=== PATIENT | female | born 1985 | race American Indian/Alaskan Native ===

== ENCOUNTER 2018-08-17 14:55 | Emergency (ER) | payer MEDICAID, OTHER ==
--- NOTE | 2018-08-17 15:09 | Emergency Department Report ---
Blank Doc - Documentation Documentation: This is a 32-year-old female that presents with sore throat. This initial assessment/diagnostic orders/clinical plan/treatment(s) is/are subject to change based on patient's health status, clinical progression and re- assessment by fellow clinical providers in the ED. Further treatment and workup at subsequent clinical providers discretion. Patient/guardians urged not to elope from the ED as their condition may be serious if not clinically assessed and managed. Initial orders include: 1- Patient sent to [facility] for further evaluation and treatment 2- strep swab
[2018-08-17 15:11] VITALS: BP 130/72
--- NOTE | 2018-08-17 16:24 | Emergency Department Report ---
Minor Respiratory - HPI Chief Complaint: Sore Throat Stated Complaint: THROAT/CHEST PAIN/SOB Time Seen by Provider: 08/17/18 15:08 Duration: 4 Days Pain Location: Throat Severity: moderate Minor Respiratory: Yes Sore Throat, Yes Able to Tolerate Fluids, Yes Cough, Yes Sick Contacts (airplane), No Rhinorrhea, No Ear Pain, No Hemoptysis, No Chest Pain, No Shortness of Breath, No Fever Other History: This is a 32-year-old [place] female who presents to the emergency room with cough and sore throat for 4-5 days. Patient states she is borderline with vinegar and salt water with minimal improvement of symptoms. Patient states she recently returned home from [place] and sick every since. She denies fever, nausea, vomiting, abdominal pain, vaginal discharge, vaginal bleeding, or back pain. ED Review of Systems ROS: Stated complaint: THROAT/CHEST PAIN/SOB Other details as noted in HPI Constitutional: denies: chills, fever ENT: throat pain. denies: ear pain Respiratory: cough. denies: shortness of breath, wheezing Cardiovascular: denies: chest pain, palpitations Gastrointestinal: denies: abdominal pain, nausea, diarrhea Musculoskeletal: denies: myalgia Skin: denies: rash, lesions Neurological: denies: headache, weakness, paresthesias Psychiatric: denies: anxiety, depression ED Past Medical Hx - Past Medical History Previous Medical History?: No - Surgical History Past Surgical History?: No - Social History Smoking Status: Never Smoker Substance Use Type: None - Medications Home Medications: Home Medications Medication Instructions Recorded Confirmed Last Taken Type Azithromycin [Zithromax Z-TREMAYNE] 250 mg PO DAILY #6 tablet 08/17/18 Unknown Rx Minor Respiratory Exam - Exam General: Vital signs noted. No distress. Alert and acting appropriately. HEENT: Yes Pharyngeal Erythema (tonsils enlarged without exudate, uvula midline), Yes Moist Mucous Membranes, Yes Rhinorrhea (turbinates mildly congested with clear drainage), No Pharyngeal Exudates, No Conjuctival Injection, No Frontal Tenderness, No Maxillary Tenderness Ear: Neither TM Bulge, Neither TM Erythema, Neither EAC Pain, Neither EAC Discharge Neck: Yes Supple, No Adenopathy Lungs: Yes Good Air Exchange, No Wheezes, No Ronchi, No Stridor, No Cough, No Labored Respirations, No Retractions, No Use of Accessory Muscles, No Other Abnormal Lung Sounds Heart: Yes Regular, No Murmur Abdomen: Yes Normal Bowel Sounds, No Tenderness, No Peritoneal Signs Skin: No Rash, No Edema Neurologic: Alert and oriented, no deficits. Musculoskeletal: Unremarkable. ED Course Vital Signs 08/17/18 15:09 Temperature 98.6 F Pulse Rate 93 H Respiratory 16 Rate Blood Pressure 130/72 O2 Sat by Pulse 98 Oximetry ED Medical Decision Making - Medical Decision Making Patient examined by me and stable. No distress noted. Vitals normal. Obtained a rapid strep which was negative. [place]. Symptoms are susceptible of acute bronchitis. She is instructed to take Tylenol only for aches and pains due to newly confirmed , to drink a lot of liquids to stay home and rest. Follow-up with primary care doctor or [facility]. Discharged home stable. Educated on care. She was given a note to return to work on tomorrow. Follow up with Primary Care Provider in 2-3 days. She will return to the emergency room if he does not get better as discussed. Critical care attestation.: If time is entered above; I have spent that time in minutes in the direct care of this critically ill patient, excluding procedure time. ED Disposition Clinical Impression: Sore throat, Cough in adult patient Acute bronchitis Qualifiers: Bronchitis organism: unspecified organism Qualified Code(s): J20.9 - Acute bronchitis, unspecified Disposition: TO HOME OR SELFCARE Is pt being admited?: No Does the pt Need Aspirin: No Condition: Stable Instructions: Acute Bronchitis (ED) Additional Instructions: Symptoms are most likely coming from for infection. Take ibuprofen every 6 hours alternated with Tylenol every 4 hours pain. You may not feel like eating which is to be expected. Try eating a bland diet as tolerated. Wash hands frequently. F/U with Primary Care Provider. Return to ER if fever, SOB, or difficulty breathing after 48 hours of supportive care. Prescriptions: Azithromycin [Zithromax Z-TREMAYNE] 250 mg PO DAILY #6 tablet Referrals: [facility] [place] [Outside] - 3-5 Days [facility] [Outside] - 3-5 Days SHALINI RACHEL DO [Staff Physician] - 3-5 Days Forms: Work/School Release Form(ED) Time of Disposition: 16:25
== END 2018-08-17 16:43 | disposition home or self-care (01) ==
LOC: ED 14:55
DX: J02.9 Acute pharyngitis, unspecified (principal); J20.9 Acute bronchitis, unspecified
CPT/HCPCS: 87116; 87430; 99283